=== PATIENT | male | born 1935 | race Caucasian/White ===

== ENCOUNTER 2016-05-22 15:07 | Inpatient (IN) ==
[2016-05-22] MEDS ORDERED: *HR* Dextrose 50 % in Water (Syg) 50 ML SYRINGE IVP PRN (16:26)
[2016-05-22] MEDS ORDERED: D5% in Water 1,000 ML IV PRN (16:26)
[2016-05-22] MEDS ORDERED: Dextrose Gel 15 GM PO PRN ×2 (16:26)
[2016-05-22] MEDS: Insulin LISPRO 300 UNITS/3 ML VIAL SQ SCH ×2 (17:08→21:33)
[2016-05-22] MEDS: Famotidine 20 MG TABLET PO SCH (21:42)
[2016-05-23 05:36] LABS: Basophils # 0.1 K/mcL (0.0-0.2); Basophils % 0.9 %; Eosinophils # 0.1 K/mcL (0.0-0.6); Eosinophils % 1.7 %; Hematocrit 37.6 % (37.5-50.1); Hemoglobin 12.9 g/dL (12.9-16.9); Immature Granulocytes % 0.5 % (0-4); Lymphocytes # 2.5 K/mcL (0.6-4.6); Lymphocytes % 38.3 %; Mean Corpuscular HGB Conc 34.3 g/dL (31.6-35.5); Mean Corpuscular Hemoglobin 29.9 pg (28.0-33.3); Mean Platelet Volume 10.8 fL (9.4-12.4); Monocytes # 0.5 K/mcL (0.0-1.3); Monocytes % 7.5 %; Neutrophils # 3.3 K/mcL (1.6-8.9); Platelet Count 168 K/mcL (140-400); Red Blood Count 4.32 M/mcL (4.19-5.50); Red Cell Distribution Width 13.2 % (11.5-14.5); Segmented Neutrophils % 51.1 %
[2016-05-23 05:50] LABS: BUN/Creatinine Ratio 15 (6-26); Blood Urea Nitrogen 18 mg/dL (8-26); Calcium 9.3 mg/dL (8.6-10.8); Carbon Dioxide 28 mEq/L (19-29); Chloride 108 mEq/L (98-109); Glucose 86 mg/dL (70-99); Osmolality,Calculated 303 (280-300); Potassium 3.9 mEq/L (3.5-4.5); Sodium 146 mEq/L (136-145); eGFR For African Americans > 60 (> 60); eGFR For Non-African Americans 58 (> 60)
[2016-05-23 05:56] LABS: INR 1.1; Prothrombin Time 11.8 Seconds (9.4-12.1)
[2016-05-23 05:58] LABS: Activated Partial Thrombo Time 31.2 Seconds (26.0-36.0)
[2016-05-23] MEDS: Insulin LISPRO 300 UNITS/3 ML VIAL SQ SCH ×4 (08:48→21:37)
[2016-05-23] MEDS: Aspirin Enteric Coated 81 MG Tablet PO SCH (08:49)
[2016-05-23] MEDS: Insulin NPH 100 UNIT/ML (x5UNIT) SQ SCH ×2 (09:00→21:38)
[2016-05-23] MEDS: Famotidine 20 MG TABLET PO SCH (21:37)
[2016-05-24 06:10] LABS: Basophils # 0.1 K/mcL (0.0-0.2); Eosinophils # 0.1 K/mcL (0.0-0.6); Eosinophils % 1.7 %; Hematocrit 38.3 % (37.5-50.1); Hemoglobin 13.1 g/dL (12.9-16.9); Immature Granulocytes % 0.4 % (0-4); Lymphocytes # 2.6 K/mcL (0.6-4.6); Lymphocytes % 36.5 %; Mean Corpuscular HGB Conc 34.2 g/dL (31.6-35.5); Mean Corpuscular Hemoglobin 29.3 pg (28.0-33.3); Mean Corpuscular Volume 85.7 fL (83.0-100.0); Mean Platelet Volume 10.5 fL (9.4-12.4); Monocytes # 0.6 K/mcL (0.0-1.3); Monocytes % 8.4 %; Neutrophils # 3.7 K/mcL (1.6-8.9); Platelet Count 160 K/mcL (140-400); Red Blood Count 4.47 M/mcL (4.19-5.50); Red Cell Distribution Width 13.2 % (11.5-14.5)
[2016-05-24 06:20] LABS: BUN/Creatinine Ratio 17 (6-26); Blood Urea Nitrogen 21 mg/dL (8-26); Calcium 9.4 mg/dL (8.6-10.8); Carbon Dioxide 25 mEq/L (19-29); Chloride 108 mEq/L (98-109); Glucose 186 mg/dL (70-99); Osmolality,Calculated 302 (280-300); Potassium 4.1 mEq/L (3.5-4.5); Sodium 142 mEq/L (136-145); eGFR For African Americans > 60 (> 60); eGFR For Non-African Americans 55 (> 60)
[2016-05-24] MEDS: Aspirin Enteric Coated 81 MG Tablet PO SCH (08:16)
[2016-05-24] MEDS: Insulin LISPRO 300 UNITS/3 ML VIAL SQ SCH ×4 (08:17→20:32)
[2016-05-24] MEDS: Insulin NPH 100 UNIT/ML (x5UNIT) SQ SCH ×2 (08:18→20:32)
--- NOTE | 2016-05-24 13:43 | Internal Med History&Physical ---
Date of Encounter: 05/24/16 Time of Encounter: 13:39 Assessment and Plan (1) CVA (cerebral vascular accident) Current visit: Yes Status: Acute PT and OT to work on functional mobility in balance remediation. Qualifiers: CVA mechanism: unspecified Qualified Code(s): I63.9 - Cerebral infarction, unspecified Internal Medicine - H&P: HPI Admitted From: Intrahospital Transfer Plans for Post Hospital Care: Home History of present illness: Mr. Moreau is a 80 year old male who initially presented with acute right occipital infarct. He initially presented with visual disturbances and started having difficulty with walking and feeling off balance with ataxia. On today's examination he feels much better but still has some visual disturbances. He still has some balance difficulties. No shortness of breath. No chest pain. No headache. No focal numbness weakness of his extremities. Past Med Surg Social Fam HX - Past Medical History Medical history: atrial fibrillation, cancer, diabetes, hypertension Psychiatric history: no psych history - Past Surgical History Surgical History: cancer surgery, cholecystectomy - Social History Smoking Status: Former smoker Smokeless Tobacco Status: Yes Alcohol use: none Drug use: none - Family History Father Living Status: Age at : 79 Hx Family Cardiac Disorders: Yes Hx Family Cancer: Yes (stomach) Hx Family Endocrine Disorder: Yes (diabetes) Internal Medicine - H&P: Meds Aspirin [Lo-Dose Aspirin EC] 81 mg PO DAILY 05/22/16 [History] Atorvastatin [Lipitor] 80 mg PO HS 05/22/16 [History] Insulin NPH [HumuLIN NPH] 14 unit SQ HS 05/22/16 [History] Insulin NPH [HumuLIN NPH] 18 unit SQ [facility] 05/22/16 [History] Metoprolol [Lopressor] 50 mg PO BID 05/22/16 [History] Ranitidine HCl [Ranitidine HCl] 300 mg PO HS 05/22/16 [History] Allergies No Known Allergies Allergy (Verified 05/18/16 11:49) All Systems PM: A 10-system review of systems was performed and is negative for pertinent findings except as documented above in the HPI. - Constitutional Constitutional: malaise - EENT Eyes: change in vision, no loss of vision - Cardiovascular Cardiovascular ROS IM: no chest pain, no diaphoresis, no dyspnea, no lightheadedness, no palpitations, no syncope - Respiratory Respiratory: no cough, no dyspnea, no wheezing, no excessive phlegm production - Gastrointestinal Gastrointestinal: no abdominal pain, no diarrhea, no hematemesis, no hematochezia, no melena, no nausea, no vomiting - Musculoskeletal Musculoskeletal ROS IM: back pain, muscle weakness, stiffness - Integumentary Integumentary IM: no rash, no unusual bruising - Neurological Neurological ROS: abnormal gait, abnormal movements, disequilibrium, frequent falls, lack of coordination, no focal weakness - Constitutional Vitals: Temp Pulse Resp BP Pulse Ox 99.4 F 58 16 129/60 96 05/24/16 07:06 05/24/16 13:16 05/24/16 13:16 05/24/16 13:16 05/24/16 13:16 General appearance: Present: A&O X 3, no acute distress - Respiratory Respiratory exam: Present: CTAB. Absent: accessory muscle use, rales, rhonchi, wheezes - Cardiovascular Cardiovascular exam: Present: RRR, +S1, +S2. Absent: diastolic murmur, gallop, rubs, systolic murmur - GI/Abdominal GI/Abdominal exam: Present: normal bowel sounds, soft, no peritoneal signs. Absent: distended, tenderness - Extremities Exam Extremities exam: Present: warm, radial pulses palpable and symetrical. Absent : calf tenderness, cyanotic, pedal edema - Neurological Exam Neurological exam: Absent: normal gait, facial droop - Skin Skin exam: Present: dry, intact Internal Med - H&P Results - Labs CBC & Chem 7: 05/24/16 05:50 05/24/16 05:50 Labs: Short CBC 05/24/16 Range/Units 05:50 WBC 7.1 (4.3-11.1) K/mcL Hgb 13.1 (12.9-16.9) g/dL Hct 38.3 (37.5-50.1) % Plt Count 160 (140-400) K/mcL Neutrophils # 3.7 (1.6-8.9) K/mcL BMP 05/24/16 05:50 Sodium 142 Potassium 4.1 Chloride 108 Carbon Dioxide 25 BUN 21 Creatinine 1.27 H Glucose 186 H Calcium 9.4 - VTE Documentation of Mechanical Device: Graduated compression elastic hosiery
[2016-05-24] MEDS: Famotidine 20 MG TABLET PO SCH (20:30)
[2016-05-25] MEDS: Insulin LISPRO 300 UNITS/3 ML VIAL SQ SCH ×4 (08:03→21:24)
[2016-05-25] MEDS: Aspirin Enteric Coated 81 MG Tablet PO SCH (08:03)
[2016-05-25] MEDS: Insulin NPH 100 UNIT/ML (x5UNIT) SQ SCH ×2 (08:07→21:23)
--- NOTE | 2016-05-25 13:51 | Internal Med Progress Note ---
Date of Encounter: 05/25/16 Time of Encounter: 13:49 - Assessment and plan (1) CVA (cerebral vascular accident) Current Visit: Yes Status: Acute Assessment and plan: She had CVAs working with PT OT. Speech. Qualifiers: CVA mechanism: unspecified Qualified Code(s): I63.9 - Cerebral infarction, unspecified - Time Spent With Patient less than 15 minutes - Subjective Interval history: Mr. Shea is pleasantly demented but working with her therapist. Affect is undertaking teaching the daughter diabetic control with insulin - Constitutional Vitals: Temp Pulse Resp BP Pulse Ox 97.6 F 70 18 139/75 96 05/25/16 07:01 05/25/16 08:03 05/25/16 07:01 05/25/16 07:01 05/25/16 07:01 General appearance: Present: A&O X 3, no acute distress - Head Head exam: Present: atraumatic, normal inspection, normocephalic - Neck Neck exam general surgery: Present: supple, trachea midline. Absent: lymphadenopathy - Respiratory Respiratory exam: Present: CTAB. Absent: accessory muscle use, rales, rhonchi, wheezes - Cardiovascular Cardiovascular exam: Present: RRR, +S1, +S2. Absent: diastolic murmur, gallop, rubs, systolic murmur Internal Medicine: Result - Labs CBC & Chem 7: 05/24/16 05:50 05/24/16 05:50 Labs: Lab looks good - ABG Interpretation ABG results: PT/INR, D-dimer PT 11.8 Seconds (9.4-12.1) 05/23/16 05:15 - VTE Documentation of Mechanical Device: Graduated compression elastic hosiery Consult Discharge Plan - Plan Referrals: Austin Flores MD [Primary Care Provider] - 06/01/16 10:00 am
[2016-05-25] MEDS: Famotidine 20 MG TABLET PO SCH (20:29)
[2016-05-26 07:36] VITALS: BP 115/77
[2016-05-26] MEDS: Aspirin Enteric Coated 81 MG Tablet PO SCH (08:41)
[2016-05-26] MEDS: Insulin LISPRO 300 UNITS/3 ML VIAL SQ SCH (08:41)
[2016-05-26] MEDS: Insulin NPH 100 UNIT/ML (x5UNIT) SQ SCH (08:43)
--- NOTE | 2016-05-26 11:48 | Discharge Summary ---
Date of Encounter: 05/26/16 Time of Encounter: 11:46 - Discharge Diagnosis (1) CVA (cerebral vascular accident) Priority: Primary Status: Acute Comments: Patient is going home today at the insistence of his . This rehabilitation staff feels that he could use more time but he does have dementia and for whatever reason she insists on taking him home today Qualifiers: CVA mechanism: stenosis Precerebral and cerebral artery: unspecified precerebral artery Qualified Code(s): I63.20 - Cerebral infarction due to unspecified occlusion or stenosis of unspecified precerebral arteries - Discharge Medications Home Medications: Aspirin [Lo-Dose Aspirin EC] 81 mg PO DAILY 05/22/16 [History] Atorvastatin [Lipitor] 80 mg PO HS 05/22/16 [History] Insulin NPH [HumuLIN NPH] 14 unit SQ HS 05/22/16 [History] Insulin NPH [HumuLIN NPH] 18 unit SQ [facility] 05/22/16 [History] Metoprolol [Lopressor] 50 mg PO BID 05/22/16 [History] Ranitidine HCl [Ranitidine HCl] 300 mg PO HS 05/22/16 [History] Allergies/Adverse Reactions: Allergies No Known Allergies Allergy (Verified 05/18/16 11:49) Date of admission: 05/22/16 15:12 Primary care physician: Austin Flores MD Consults: 05/22/16 16:20 Consult to Occupational Therapy [CONS] Routine Comment: Evaluate, develop and implement POC Consult to Physical Therapy [CONS] Routine Comment: Evaluate, develop and implement POC Consult to Recreational Therapy [CONS] Routine Comment: Evaluate, develop and implement POC Consult to Sailing Officer [CONS] Routine Reason for SW Consult: discharge planning Consult to Speech Therapy [CONS] Routine Comment: Evaluate, develop and implement POC Reason for Consult: speech impairment Call Completed: Yes 05/24/16 13:30 Consult to Psychology [CONS] Routine Consulting Provider: Hyun Swann Reason for Consult: eval and tx Call Completed: Yes Discharging clinician: Henry Campbell Anticipated date of discharge: 05/26/16 - Patient Status Disposition: Home, Self-Care Condition: Fair Functional capacity at discharge: uses cane/walker Overall status at discharge: patient is progressing back to baseline - Discharge Instructions Follow Up With: Austin Flores MD [Primary Care Provider] - 06/01/16 10:00 am - Diet and Activity Activity: ambulate only with your walker Diet: advance to your usual diet Interval History: Patient was admitted to the [facility] rehabilitation unit status post CVA. Hospital course: Mr. Moreau is a 80 year old male Patient is participated smiling and doing well. Staff feels he could benefit from few more days. His insists on taking him home today - Time Spent with Patient Total time spent providing and/or coordinating discharge services: Less than 30 minutes - Constitutional Vitals: Temp Pulse Resp BP Pulse Ox 98.0 F 62 16 115/77 95 05/26/16 07:35 05/26/16 07:35 05/26/16 07:35 05/26/16 07:35 05/26/16 07:35 General appearance: Present: A&O X 3, no acute distress - Head Head exam: Present: atraumatic, normal inspection, normocephalic - Neck Neck exam general surgery: Present: supple, trachea midline. Absent: lymphadenopathy - Respiratory Respiratory exam: Present: CTAB. Absent: accessory muscle use, rales, rhonchi, wheezes - Cardiovascular Cardiovascular exam: Present: RRR, +S1, +S2. Absent: diastolic murmur, gallop, rubs, systolic murmur - VTE Documentation of Mechanical Device: Graduated compression elastic hosiery
[2016-05-26] MEDS ORDERED: FLU VACC QS2016-17 36MOS UP/PF 0.5 ML SYRINGE IM ONE (14:47)
--- NOTE | 2016-05-26 16:43 | Psychological Evaluation ---
Date of Encounter: 05/26/16 Time of Encounter: 10:30 History of Present Illness History of present illness: Mr. Moreau is a 80 year old male admitted to [facility] for inpatient rehabilitation following a right occipital infarct. He was seen on this date to assess his current cognitive and emotional functioning. Past Medical History Medical history: Significant for diabetes, HTN, cancer and atrial fibrillation. Mr. Moreau reported that his diabetes was not controlled prior to his stroke and he had been feeling "weak and wore out". - Psychiatric History Additional Psychiatric History: Mr. Moreau denied a history of depression or anxiety. There is no history of psychiatric hospitalization or suicidal ideation. Family psychiatric hx: There is no family history of psychiatric or mental health issues. Home Medications and Allergies Aspirin [Lo-Dose Aspirin EC] 81 mg PO DAILY 05/22/16 [History] Atorvastatin [Lipitor] 80 mg PO HS 05/22/16 [History] Insulin NPH [HumuLIN NPH] 14 unit SQ HS 05/22/16 [History] Insulin NPH [HumuLIN NPH] 18 unit SQ [facility] 05/22/16 [History] Metoprolol [Lopressor] 50 mg PO BID 05/22/16 [History] Ranitidine HCl [Ranitidine HCl] 300 mg PO HS 05/22/16 [History] Allergies No Known Allergies Allergy (Verified 05/18/16 11:49) Social History - Social History Social History: Mr. Moreau has been to his second for approximately 18 years. He stated that his first had COPD and would not stop smoking before she from the COPD. They had 3 children (2 daughters and 1 son). Mr. Moreau reported that he no longer talks to his oldest daughter because of a disagreement they had ("won't have anything to do with her") but he is close to his youngest daughter and her . His son lives in [place] and he does not see him often. Mr. Moreau completed the 8th grade. He reported that he was advised by teachers at his school not to advance to high school because he would not be able to meet the demands. He stated that he is illiterate. He is retired from a [employer] factory. Prior to his admission, he spent his days "working on a little bit of everything". His hobby is restoring old cars in his pull-barn. Social support network consists of his , his youngest daughter and his son-in-law. - Tobacco Use Smoking Status: Former smoker - Alcohol Use Alcohol Use: none - Drug Use Drug Use: none Cognitive/Emotional Assessment - Cognitive Ability Additional Findings: Mr. Moreau was alert, attentive and partially oriented. He struggled remembering if he was born in 1934 or 1936 but he was correct about his age. He did not know the month but was correct with the date/year and he was able to correctly identify place. Speech was clear, effective and fluent. Thought processes were logical, goal-directed and coherent. There were no signs of delusional ideation or perceptual disturbances. He was unable to do rote or simple mental arithmetic. He was also noted to be somewhat hard of hearing and had to have information repeated. Performed adequately on a task of confrontational naming. Mild impairment on a task of sentence repetition and delayed verbal recall. He exhibited problems with encoding, storage and retrieval of new information. His performance improved when he was given recognition cues (multiple choices). He presented as aware of his cognitive strengths and weaknesses. - Emotional Status Additional Findings: Mr. Moreau was friendly, cooperative and pleasant. His mood was euthymic and affect was appropriate and congruent with mood. He denied any changes or problems with his appetite or sleep. He reported that he is being discharged this afternoon and is looking forward to going home and playing with his dogs and birds. He reported that he has visual cuts in his vision for which he is trying to make adjustments but offered no other complaints/concerns. Assessment & Plan - Treatment Plan Treatment Plan/Recommendations: Mr. Moreau exhibited problems with delayed recall, mental arithmetic and sentence repetition but stated that these were problems for him prior to his stroke. He appears to be coping fairly well from an emotional perspective and is looking forward to going home later today. There are no recommendations for additional psychological interventions. Procedures - Session Time Session Start Time: 10:30 Session Stop Time: 11:00
--- NOTE | 2016-05-27 13:14 | Physician Discharge Referral ---
Home Health/Hosp Referral Info Transfer to: Home Health Provider in Charge Post Discharge: PCP - Diagnosis (1) CVA (cerebral vascular accident) Priority: Primary Status: Acute - Respiratory Orders Smoking Cessation: Smoking cessation has been advised. For more information, call the [place] Tobacco Quit Line at 3-027-XOOQ-NOW. - Diet/Nutrition Diet/Nutrition Orders: No Concentrated Sweets - Activity Activity Orders: Walker - Services Needed Following services are medically necessary services: Nursing, Physical Therapy - Transfer Medications Home Medications: Aspirin [Lo-Dose Aspirin EC] 81 mg PO DAILY 05/22/16 [History] Atorvastatin [Lipitor] 80 mg PO HS 05/22/16 [History] Insulin NPH [HumuLIN NPH] 14 unit SQ HS 05/22/16 [History] Insulin NPH [HumuLIN NPH] 18 unit SQ QA 05/22/16 [History] Metoprolol [Lopressor] 50 mg PO BID 05/22/16 [History] Ranitidine HCl [Ranitidine HCl] 300 mg PO HS 05/22/16 [History] Allergies/Adverse Reactions: Allergies No Known Allergies Allergy (Verified 05/18/16 11:49) Certification: Further, I certify that my clinical findings support that this patient is homebound (i.e. absences from home require considerable and taxing effort and are for medical reasons or hoahaoism services or infrequently or short duration when for other reasons) because: Homebound Reason: Patient requires assistance of a person or device to safely leave home Attestation: My signature below is to certify that this patient is under my care and that I, or nurse practitioner, or a physician's clinic assistant working with me, has a face-to -face encounter with this patient.
== END 2016-05-26 15:00 | disposition home or self-care (01) | DRG 57 ==
LOC: INPGRE 15:12
PROVIDERS: ADMIT Internal Medicine; ATTEND Internal Medicine